=== PATIENT | female | born 1950 | race Caucasian/White ===

== ENCOUNTER 2018-09-09 23:41 | Emergency (ER) | payer MEDICARE, BC ==
[~2018-09-09] VITALS: Ht 165.1 cm; Wt 77.2 kg
[~2018-09-09 23:41] MED LIST: HYDR-4383 PO
[2018-09-10] MEDS ORDERED: FLEC100T2 PO (00:03)
[2018-09-10 00:18] VITALS: BP 177/89
== END 2018-09-10 00:20 | disposition home or self-care (01) ==
LOC: ER 23:42
DX: I48.91 Unspecified atrial fibrillation (principal); I10 Essential (primary) hypertension; K21.9 Gastro-esophageal reflux disease without esophagitis; Z76.0 Encounter for issue of repeat prescription; Z72.89 Other problems related to lifestyle; Z90.49 Acquired absence of other specified parts of digestive tract; Z90.710 Acquired absence of both cervix and uterus; Z88.0 Allergy status to penicillin; Z88.6 Allergy status to analgesic agent; Z56.0 Unemployment, unspecified
CPT/HCPCS: 99283

== ENCOUNTER 2025-04-05 08:55 | Emergency (ER) | payer BC, MEDICARE ==
[~2025-04-05] VITALS: Ht 165.1 cm; Wt 80.8 kg
[~2025-04-05 08:55] MED LIST changes: +FLEC100T2 PO
--- NOTE | 2025-04-05 09:14 | Physician Documentation ---
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 Patient reported was seen at an urgent care to confirm no fracture or damage to the artificial hip initial injury and was referred to physical therapy, patient reported physical therapy appointment began approximately one month after injury and injury was improving. In the time before physical therapy appointment patient was seen by her orthopedist Dr. Larose who reportedly was waiting for patient to finish physical therapy sessions prior to re-evaluation. Reports she is able to ambulate in her home with the use of a walker and that her prescribed Celebrex takes the edge off patient's primary concern is mobility issues preventing her from caring for her large outdoor animals. Medication Reconciliation Allergies: Coded Allergies: morphine (Unverified Allergy, Intermediate, VOMITING, 05/19/09) Penicillins (Verified Allergy, Unknown, 09/02/16) Uncoded Allergies: PCN (Allergy, Unknown, 05/19/09) Scheduled Flecainide Acetate (Flecainide Acetate), 1 TAB PO Q12H Scheduled PRN Hydrocodone/Acetaminophen ([place] 5-325 Tablet), 1 TAB PO Q6H PRN for pain Past Medical History Past Medical History: Arrhythmia, Hypertension, GERD, Thyroid (unspecified), Depression Past Surgical History: appendectomy, hysterectomy, orthopedic surgeries, other Alcohol Use: Occasionally Drug Use: none Lives with: Alone Lives In: Home Occupation: unemployed, retired Review of Systems ROS Right hip pain as stated above in the HPI, otherwise all systems are reviewed and negative. Physical Exam Vital Signs: Temperature: 98.2, Source: Temporal, Heart Rate: 57, Respiratory Rate: 15, BP: 136/70, Pulse Oximetry: 99, Weight: 80.850 General Appearance VITALS: Reviewed and as above. GENERAL: Alert, nontoxic appearing, no apparent distress. RESPIRATORY: No increased work of breathing, no respiratory distress, speaking in full clear sentences MUSCULOSKELETAL: Right hip nontender to palpation, no ecchymosis, no deformity, no erythema Progress Results/Orders Results/Orders Vital Signs 04/05/25 04/05/25 08:56 09:40 Temp 98.2 97.8 Pulse 57 60 Resp 15 16 B/P (MAP) 136/70 132/70 Pulse Ox 99 97 Medical Decision Making Findings This is a 74-year-old female who presented with right hip pain that has initially result of a fall striking right hip that subsequently began to improve though worsened after starting physical therapy. Patient is otherwise well- appearing benign physical exam and able to ambulate without difficulty. I discussed with the patient the option for admission for pain management and further workup and patient has a strong preference against admission, additionally patient offered pain medication in the emergency department and reported that she had Tylenol of her own and would prefer to be discharged as she would not like to wait in the ED any longer. With shared decision-making with patient home care plan is to add Tylenol to her Celebrex regime for breakthrough pain and to follow up 1st thing tomorrow morning with her orthopedist and physical therapist. As the patient is otherwise well-appearing she is appropriate for outpatient follow up. Differential Dx:Considerations: Include: Arthritis, Arthritis-Rheumatoid, Bursitis, Contusion, Dislocation, Fracture-femur, Fracture-pelvis, Sprain Departure Disposition: HOME / SELF CARE / HOMELESS Impression: Primary Impression: Hip pain Qualified Codes: M25.551 - Pain in right hip Condition: Improved Discharge Instructions: Hip Pain Additional Instructions: Please follow up with Dr. Larose's office 1st thing in the morning and contact your physical therapist to discuss concerns about continuing PT. As we discussed please use Tylenol as directed by the [id number] packaging in addition to your Celebrex for your hip pain. Please also follow up with your primary care provider in the next few days. Please return to the emergency department for any new or worsening concerning symptoms. Referrals: NO PRIMARY CARE PROVIDER (PCP) Education Educated: Patient Educated regarding: diagnosis, treatment, prognosis, need for follow up Signature Scribe Signature: No scribe Attestation: The note accurately reflects work and decisions made by me.BENJA Bender 04/05/25 21:21 REID ARREDONDO Apr 05, 2025 09:14
[2025-04-05 09:40] VITALS: BP 132/70; PULSE 60; RESP 16; TEMP 97.8; O2SAT 97
== END 2025-04-05 09:42 | disposition home or self-care (01) ==
LOC: ER 08:55
DX: M25.551 Pain in right hip (principal); I10 Essential (primary) hypertension; K21.9 Gastro-esophageal reflux disease without esophagitis; F32.A Depression, unspecified; Z88.0 Allergy status to penicillin; Z88.5 Allergy status to narcotic agent; Z90.49 Acquired absence of other specified parts of digestive tract; Z90.710 Acquired absence of both cervix and uterus
CPT/HCPCS: 99284

== ENCOUNTER 2025-04-06 15:22 | Outpatient (CLI) | payer BC ==
--- NOTE | 2025-04-06 16:57 | RADIOLOGY REPORT ---
CLINICAL INDICATION: RIGHT HIP PAIN TECHNIQUE: AP view of the pelvis and AP and frogleg lateral views of the right hip were performed. D I HIP UNILATERAL 2 VIEWS Comparison: None FINDINGS/IMPRESSION: 1. No acute fracture of the pelvis or hips. 2. Postoperative changes of right total hip arthroplasty without evidence of periprosthetic fracture, dislocation, loosening, or other complication. 3. Severe lower lumbar degenerative disc disease, not fully imaged here.
== END 2025-04-06 23:59 | disposition home or self-care (01) ==
LOC: RAD 15:22
PROVIDERS: ATTEND Orthopaedic Surgery
DX: M25.551 Pain in right hip (principal); Z96.641 Presence of right artificial hip joint
CPT/HCPCS: 73502